=== PATIENT | male | born 1960 | race Caucasian/White ===

== ENCOUNTER 2019-11-28 14:11 | Inpatient (IN) | payer SELFPAY ==
[2019-11-28 14:14] VITALS: BP 139/85; PULSE 60; RESP 16; TEMP 36.7; O2SAT 99; BMI 25.0
--- NOTE | 2019-11-28 14:29 | PC.NURSE ---
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 Pt grabbed his head & put it down. Coworkers state that's when pt hears the voices. Pt said someone inside his head.
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
[2019-11-28 15:34] LABS: Basophils % 0.4 %; Eosinophils # 0.1 10^3/uL (0.0-0.8); Eosinophils % 0.8 %; Hematocrit 42.8 % (42.0-52.0); Hemoglobin 13.8 g/dL (11.7-16.6); Lymphocytes # 2.1 10^3/uL (0.8-4.8); Lymphocytes % 21.9 %; Mean Corpuscular HGB Conc 32.2 g/dL (30.0-36.0); Mean Corpuscular Hemoglobin 29.4 pg (28.0-34.0); Mean Corpuscular Volume 91.1 fL (80-94); Mean Platelet Volume 9.8 fL (7.4-10.4); Monocytes # 0.6 10^3/uL (0.2-0.9); Monocytes % 6.2 %; Neutrophils # 6.7 10^3/uL (1.8-7.7); Neutrophils % 70.4 %; Nucleated Red Blood Cells % 0 %; Platelet Count 246 10^3/cmm (130-400); Red Cell Distribution Width 12.4 % (12.1-15.1); White Blood Count 9.5 10^3/uL (4.0-10.0)
--- NOTE | 2019-11-28 15:53 | PC.NURSE ---
please see 1:1 documentation for further charting
--- NOTE | 2019-11-28 15:54 | PC.NURSE ---
provided food for pt
[2019-11-28 15:56] LABS: Alanine Aminotransferase 17 U/L (0-41); Albumin Level 4.1 g/dL (3.5-5.2); Alkaline Phosphatase 84 IU/L (40-130); Aspartate Amino Transferase 18 U/L (0-40); Blood Urea Nitrogen 10 mg/dL (6-20); Calcium 9.3 mg/Dl (8.6-10.0); Carbon Dioxide 24 mmol/L (22-29); Chloride 105 mmol/L (98-107); Globulin 2.5 g/dL (1.3-4.6); Glomerular Filtration Rate 115.8 mL/min (90-130); Glucose 99 mg/dL (74-109); Sodium 139 mmol/L (136-145); Total Bilirubin 0.3 mg/dL (0.15-1.2); Total Protein 6.6 g/dL (6.6-8.7)
[2019-11-28 16:15] LABS: Acetaminophen < 5.0 ug/mL (10-30); Alcohol Level < 10 mg/dL (0-10); Salicylate < 0.3 mg/dL (3-10)
[2019-11-28 17:03] LABS: Amphetamines Screen Urine Negative (Negative); Barbiturates Screen Urine Negative (Negative); Benzodiazepines Screen Urine Negative (Negative); Cocaine Screen Urine Negative (Negative); Opiate Screen Urine Negative (Negative); PCP Screen Urine Negative (Negative); THC Screen Urine Positive (Negative)
[2019-11-28 18:06] VITALS: BP 126/65; PULSE 61; RESP 18; O2SAT 97
[2019-11-28 18:25] VITALS: BP 155/93; PULSE 63; RESP 20; TEMP 37.1; O2SAT 98
[2019-11-28 20:38] VITALS: BP 135/79; PULSE 62; RESP 18; TEMP 36.9; O2SAT 98
[2019-11-29 06:00] VITALS: BP 140/73; PULSE 80; RESP 20; TEMP 36.8; O2SAT 98
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
[2019-11-29 14:00] VITALS: BP 121/71; PULSE 65; RESP 16; TEMP 36.4; O2SAT 96
[2019-11-29] MEDS: fluoxetine 20 mg Capsule PO (18:21)
[2019-11-29 19:55] VITALS: BP 133/72; PULSE 56; RESP 19; TEMP 36.8; O2SAT 98
[2019-11-30 06:00] VITALS: BP 126/72; PULSE 59; RESP 19; TEMP 36.5; O2SAT 98
[2019-11-30] MEDS: fluoxetine 20 mg Capsule PO (08:50)
--- NOTE | 2019-11-30 12:57 | P.PN_ITS ---
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 He gets home late at night and can't get to sleep. He is only getting 3-4 hours of sleep per night. Mental Status Exam MSE Comments: Mental Status Exam: Patient is believed to be a reliable source of information Appearance: hygiene is Poor; no gross neurological deficits., gait is unremarkable; AIMS=0 Speech: Speech is of normal rate and rhythm and easily understood. Thought processes: Thought processes are abstract. Judgment is adequate for safety. Associations: intact Psychotic processes: There is no indication of guarding or paranoia. There is no attention to the internal stimuli. Auditory and visual hallucinations are denied. Judgment: Insight is fair. Problem solving skills are adequate for safety. Orientation: The patient is oriented to person, place time and situation. Memory: no deficits noted in immediate, intermediate, or remote spheres. Attention: The patient is alert and interpersonally engaged. Language: Verbalizations are coherent. Fund of knowledge: Fund of knowledge is adequate. Affect/Mood: Affect is consistent with a depressed mood. Denied suicidal ideation Affective range is appropriate. Psychosis: perception unimpaired except through cognitive distortion; reality testing intact. Cognition: Patient Appearance: Disheveled/Poor Hygiene Level of Consciousness: Awake, Alert and Appropriate Patient Cognition Impaired: No Ability to Follow Directions: Good Patient Orientation (long list): Person, Place and Time Comprehension Ability: Understands Concepts Hallucination Type: None Delusion Description: Not Present Thought Process: Confused Affect: Affect Description: [place] Depressive Symptoms: Unhappiness Behavior: Patient Behavior: Appropriate Speech Pattern: Appropriate Vitals/I&O/Wt Last Vital Signs Temp 97.7 F 11/30/19 06:00 Pulse 59 L 11/30/19 06:00 Resp 19 H 11/30/19 06:00 BP 126/72 11/30/19 06:00 Pulse Ox 98 11/30/19 06:00 Weight last 48 hrs Weight 83.915 kg A&P Additional A&P Information Major depression?single episode, severe, without psychotic features Grief response?acute Plan: Trial of Ambien 5 mg at bedtime Continue Prozac 20 mg daily Continue social work consultation. Discussed with patient exploration of availability of leave from his employment temporarily. Involuntary Hold Information 96 Hour Hold: 96 Hour Involuntary Admission: No Attestations NPU Medical Necessity Statement*: Patient will remain in the hospital another 3-4 nights while his medications are stabilized and psychosocial issues are dealt with. Coding Level of Care Code Acute Senior Data Analyst for [place]
[2019-11-30 14:00] VITALS: BP 120/77; PULSE 58; RESP 18; TEMP 36.7; O2SAT 99
[2019-11-30 19:59] VITALS: BP 104/69; PULSE 65; RESP 17; TEMP 36.7; O2SAT 98
[2019-11-30] MEDS: zolpidem 5 mg Tablet PO (21:43)
[2019-12-01 06:00] VITALS: BP 118/69; PULSE 58; RESP 18; TEMP 36.6; O2SAT 98
[2019-12-01] MEDS: fluoxetine 20 mg Capsule PO (09:10)
--- NOTE | 2019-12-01 13:32 | P.PN_ITS ---
Subjective NPU Subjective: Interval history: PAtient tolerating fluoxetine. Ambien ineffective for improving diurnal pattern. Coping skills discussed. He does have small group of strong social support. Genreally not very social person.. Mental Status Exam MSE Comments: This is a well-nourished well-developed white male with adequate dress, grooming and eye contact. No abnormal movements except for psychomotor retardation. Cooperative with exam in mild distress. Speech was normal rate and volume. Mood described as depressed affect congruentbut less so with better affective range and appreciation of humor. Thought process organized. Thought content: Patient denied any homicidal ideation but does endorse suicidal thoughts, there are no delusions reported or noted, he denies any auditory or visual hallucinations. Attention and concentration were intact and memory appeared reliable but none were formally tested. He is alert and oriented x3. Insight and judgment are impaired. Cognition: Patient Appearance: Disheveled/Poor Hygiene Level of Consciousness: Awake, Alert and Appropriate Patient Cognition Impaired: No Ability to Follow Directions: Good Patient Orientation (long list): Person, Place and Time Comprehension Ability: Understands Concepts Hallucination Type: None Delusion Description: Not Present Thought Process: Confused Affect: Affect Description: Calm and Flat Depressive Symptoms: Unhappiness Behavior: Patient Behavior: Cooperative Speech Pattern: Clear Vitals/I&O/Wt Last Vital Signs Temp 97.9 F 12/01/19 06:00 Pulse 58 L 12/01/19 06:00 Resp 18 12/01/19 06:00 BP 118/69 12/01/19 06:00 Pulse Ox 98 12/01/19 06:00 Data NPU : 11/28/19 15:29 11/28/19 15:29 A&P Additional A&P Information This is a 58-year-old white male with a long history of trauma and loss who p resents after the of his 2 months ago with continued symptoms of depression, despair and thoughts of not wanting to go on. 1. Continue current medication. Except: 2. Day #3 on Prozac 20 mg p.o. every morning. Replace ambien with gabapentin 300 mg for insomnia 3. Encouraged individual, group and milieu therapy. 4. Continue to 15-minute checks for safety. 5. Explore the resources in the community for grief counseling after discharge. Involuntary Hold Information 96 Hour Hold: 96 Hour Involuntary Admission: No Attestations NPU Medical Necessity Statement*: patient will remain in hospital 3 more midnights for safety of medication assessment. Coding Level of Care Code Acute Health Services Rn for [place]
[2019-12-01 13:36] VITALS: BP 112/66; PULSE 61; RESP 20; TEMP 36.9
[2019-12-01 20:03] VITALS: BP 118/82; PULSE 74; RESP 22; TEMP 36.8
[2019-12-01] MEDS: gabapentin 300 mg Capsule PO (20:32)
[2019-12-01 22:00] VITALS: BP 118/82; PULSE 74; RESP 22; TEMP 36.8; O2SAT 97
[2019-12-02 05:22] VITALS: BP 128/84; PULSE 80; RESP 19; TEMP 36.9; O2SAT 98
[2019-12-02] MEDS: fluoxetine 20 mg Capsule PO (08:16)
--- NOTE | 2019-12-02 12:25 | P.PN_ITS ---
Subjective NPU Subjective: Interval history: PAtient tolerating fluoxetine. Gabapentin effective for sleep but it took several hours to work. He would like to t be discharged today but was unable to arrange transportation. Mental Status Exam 2 MSE Comments: This is a well-nourished well-developed white male with adequate dress, grooming and eye contact. No abnormal movements except for psychomotor r etardation. Cooperative with exam in mild distress. Speech was normal rate and volume. Mood described as depressed affect congruentbut less so with better affective range and appreciation of humor. Thought process organized. Thought content: Patient denied any homicidal ideation and suicidal thoughts, there are no delusions reported or noted, he denies any auditory or visual hallucinations. Attention and concentration were intact and memory appeared reliable but none were formally tested. He is alert and oriented x3. Insight and judgment are impaired. Cognition: Patient Appearance: Disheveled/Poor Hygiene Level of Consciousness: Awake, Alert and Appropriate Patient Cognition Impaired: No Ability to Follow Directions: Good Patient Orientation (long list): Person, Place and Time Comprehension Ability: Understands Concepts Hallucination Type: None Delusion Description: Not Present Thought Process: Appropriate Affect: Affect Description: Appropriate Depressive Symptoms: Unhappiness Behavior: Patient Behavior: Appropriate Speech Pattern: Clear Vitals/I&O/Wt Last Vital Signs Temp 98.4 F 12/02/19 05:22 Pulse 80 12/02/19 05:22 Resp 19 H 12/02/19 05:22 BP 128/84 12/02/19 05:22 Pulse Ox 98 12/02/19 05:22 Data NPU : 11/28/19 15:29 11/28/19 15:29 A&P Additional A&P Information This is a 58-year-old white male with a long history of trauma and loss who presents after the of his 2 months ago with continued symptoms of depression, despair and thoughts of not wanting to go on. 1. Continue current medication. Except: 2. Day #3 on Prozac 20 mg p.o. every morning. Replace ambien with gabapentin 300 mg for insomnia Hospital day #4: will independent crop consultant gabapentin up to suppertime. Discharge is planned for tomorrow if he remains free of suicidal and homicidal ideation 3. Encouraged individual, group and milieu therapy. 4. Continue to 15-minute checks for safety. 5. Explore the resources in the community for grief counseling after discharge. Involuntary Hold Information 96 Hour Hold: 96 Hour Involuntary Admission: No Attestations NPU Medical Necessity Statement*: Pt to remain in hospital one more night and then discharge if he sleeps well. Coding Level of Care Code Acute Abstractor for [place]
[2019-12-02 14:00] VITALS: BP 117/83; PULSE 81; RESP 18; TEMP 36.8; O2SAT 96
[2019-12-02 20:35] VITALS: BP 127/85; PULSE 81; RESP 22; TEMP 36.8; O2SAT 98
[2019-12-02] MEDS: trazodone 50 mg Tablet PO (21:17)
[2019-12-03 06:00] VITALS: BP 98/60; PULSE 63; RESP 18; TEMP 36.6; O2SAT 98
[2019-12-03] MEDS: fluoxetine 20 mg Capsule PO (08:42)
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
[2019-12-03 11:37] VITALS: BP 98/60; PULSE 63; RESP 18; TEMP 36.6; O2SAT 98
[2019-12-03 15:56] VITALS: BP 98/60; PULSE 63; RESP 18; TEMP 36.6; O2SAT 98
[2019-12-03 15:57] VITALS: BP 98/60; PULSE 63; RESP 18; TEMP 36.6; O2SAT 98
== END 2019-12-03 15:15 | disposition home or self-care (01) | DRG 881 ==
LOC: ER 16:37 → NP 11-29 09:48
PROVIDERS: Physician Assistant; Admitting Provider Psychiatry & Neurology Psychiatry; Emergency Provider Emergency Medicine; Family Provider Nurse Practitioner Family; PCP Nurse Practitioner Family; Visit Provider Psychiatry & Neurology Psychiatry
DX: F32.9 Major depressive disorder, single episode, unspecified (principal)
CPT/HCPCS: 12345; 36415; 80053; 80307; 85025; 99284; G0378

== ENCOUNTER 2020-05-21 08:11 | Day surgery (SDC) | payer SELFPAY ==
[2020-05-21] VITALS (8 sets, daily range): BP systolic 111–158; BP diastolic 77–99; PULSE 54–74; RESP 18–23; TEMP 36.1–36.4; O2SAT 93–100; BMI 24.4
[2020-05-21] MEDS: sodium chloride 0.9% 1,000 ML 30 ML IV (08:52)
--- NOTE | 2020-05-21 09:22 | P.ANESASSM_ITS ---
Pre-Anesthetic Assessment Pre-Anesthetic Assessment: Height/Weight: Height 1.85 m Weight 83.915 kg Temp Pulse Resp BP Pulse Ox 97.2 F L 74 18 129/85 99 05/21/20 08:33 05/21/20 08:33 05/21/20 08:33 05/21/20 08:33 05/21/20 08:33 Preop Diagnosis: Right inguinal hernia Proposed Procedure: Operation Date: 05/21/20 09:40 Proposed Procedures p Inguinal Hernia Repair w/ Mesh 20246 K40.90(Right) - Luis E Vigil MD Familial anesthetic complications: None Was Beta Shaista taken within 24 hours: N/A Last intake: Intake Last Liquid Date 05/20/20 Last Liquid Time 21:00 Last Solid Date 05/20/20 Last Solid Time 21:00 Social: Social History: Tobacco and No alcohol Exam: Pre-Anes Outpt Exam: alert, oriented x 3, clear to auscultation bilaterally and regular rate & rhythm Airway: Cervical ROM: WNL MP: 1 Dentition: Other (edentulous) Pulmonary: Pulmonary: None reported CV/HEM: CV/HEM: None reported : : None reported Hepatic: Hepatic: None reported GI: GI: None reported Metabolic: Metabolic: None reported Musc/skel: Musc/skel: None reported Neuropsych: Neuropsych: None reported Anesthetic Plan: ASA status: 1 Anesthesia: General Risk of > 500 ml blood loss (7ml/kg in children): No Meds/Allergies Current Medications: Current Medications Generic Name Dose Route Start Last Admin Trade Name Freq PRN Reason Stop Dose Admin Sodium Chloride 1,000 mls @ 30 ml s/hr 05/21/20 08:00 05/21/20 08:52 Sodium Chloride 0.9% IV 05/22/20 07:59 30 mls/hr .Q24H KAMRAN Administration PFSH Anesthesia PFSH: Family History Denies family history of Anesthesia complication Bleeding disorder Social History Smoking and tobacco status: current every day smoker cigarettes Packs smoked per day: 0.75 Years cigarettes smoked: 45 Second hand smoke exposure: No Alcohol intake: never Lives independently: Yes Household members: children Marital status: / Current occupational status: employed 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
--- NOTE | 2020-05-21 09:28 | W.PM.OPSUD ---
Surgery/Procedure H&P Update DATE OF PROCEDURE: May 21, 2020 DATE H&P PERFORMED: 05/16/20 H&P UPDATE INFORMATION: I have reviewed H&P completed within last 30 days, I have examined patient prior to procedure and No changes to prior documentation PREOP DIAGNOSIS: Right inguinal hernia PRIMARY INDICATION FOR PROCEDURE: The same PLANNED PROCEDURE: Operation Date: 05/21/20 09:40 Proposed Procedures p Inguinal Hernia Repair w/ Mesh 73401 K40.90(Right) - Luis E Vigil MD
[2020-05-21] MEDS: lidocaine 2% INJ 20 mL INJECTION (10:20)
--- NOTE | 2020-05-21 11:12 | PM.OP ---
Operative Report Date of procedure: May 21, 2020 Pre-op Diagnosis: Right inguinal hernia Post-op diagnosis: same (Right large indirect inguinal hernia) Procedure Done: Right open inguinal hernia repair with mesh placement polypropylene X large tension-free repair Excision of large lipoma of the cord Specimens removed/disposition: 1. Hernial sac and content #2 lipoma of the cord Surgeon: Luis E Vigil Substation Wireman: crown and bridge dental lab technician Leroy Circulating nurses Donnie Anesthesia: General (Fran Mendez) Estimated blood loss (mL): 10 Condition: stable Disposition: same day Brief History: This is a pleasant 59-year-old gentleman presented to my office with symptomatic right inguinal hernia, after thorough history physical examination reviewing the chart I did recommend for the patient for open inguinal hernia repair with mesh placement and patient agreed to proceed. An informed consent per chart Procedure: Right open inguinal hernia repair and excision of lipoma of the cord Patient was identified in the holding area and right groin was marked by myself patient was taken to the operating room where he was placed in supine position,antibiotic was given with induction, endotracheal tube was placed per anesthesia, Lopez catheter was inserted by the circulating nurse revealing clear urine, prep and drape of both groins and lower abdomen and scrotum including the genitalia was done under the usual sterile technique. Time-out was done verifying the patient's name/date of /planned procedure destination after the procedure, all were in agreement. SCDs confirmed to be functioning, preoperative antibiotics administered per protocol, and beta sam protocol was confirmed. I started with a right groin incision 1-1/2 finger above the inguinal ligament towards the pubic tubercle, used 15 blade knife skin incision , continued to dissect using Bovie to subcutaneous, Mili's fascia down to the external oblique aponeurosis, large right indirect inguinal hernia extending to the scrotum was identified, external oblique aponeurosis was then incised using a 10 blade knife, after application of 2 hemostats across sides of the fascia and opened it, right ileo-inguinal nerve was safeguard, I managed to dissect and deliver the enlarged spermatic cord out of the wound, and placed a [place] drain for traction and countertraction, I dissected the spermatic cord and the vas deferens is identified and safeguarded ,as I identified a right inguinal hernia sac , the hernia sac was totally dissected until I reached the patulous deep inguinal ring, I opened the hernia sac the contents were viable. I did apply a transfixing sutures with 2-0 silk pop off x 2 under vision where I tied down and the sac went inside the abdominal cavity and I cut the extra sac and sent it for pathology. Large lipoma of the cord was dissected and sent separately for permanent pathology Attention was now deviated to mesh placement , using polypropylene mesh system was applied tension-free(X-large size), a cone was applied at the deep inguinal ring stabilized by silk sutures 2/0, then a sheet of mesh was applied onto the floor of the posterior wall of the right inguinal canal and anchored medially to the pubic tubercle then inferiorly to the underlying surface of the inguinal ligament and superiorly to the internal oblique aponeurosis using Prolene sutures 2/0, both limbs of the mesh encircled the exit of the cord at the deep inguinal ring, and stitched down. The cord maintained to be in good position thorough irrigation of the wound was done with normal saline and closure of the external oblique aponeurosis was done by 2/O Vicryl, followed by approximation of Mili's fascia by 2-0 Vicryl then skin maddie to close the skin, dressing was then applied in the form of Dermabond. Counts of instruments,sponges and needles were completed at the end of the procedure. Scrotal support was then placed Patient tolerated the procedure well and was taken to the recovery area after extubation I was present for the whole entire procedure
[2020-05-21] MEDS: HYDROcodone-acetaminophen 5-325 mg Tablet 1 TAB PO (11:59)
== END 2020-05-21 12:27 | disposition home or self-care (01) ==
PROVIDERS: Visit Provider Surgery
PROC: (CPT 49505; principal; 2020-05-21 09:40)
DX: K40.90 Unilateral inguinal hernia, without obstruction or gangrene, not specified as recurrent (principal); D17.6 Benign lipomatous neoplasm of spermatic cord; F17.210 Nicotine dependence, cigarettes, uncomplicated
CPT/HCPCS: 49505; 12345; 88302; 88304; 96365; J0131; J0690; J2001; J2704; J2710; J3010; J3490; J7030

== ENCOUNTER 2021-02-14 11:31 | Outpatient (CLI) | payer MEDICAID, SELFPAY ==
--- NOTE | 2021-02-14 11:40 | XRR_ITS ---
PROCEDURE INFORMATION: Exam: XR Lumbosacral Spine Exam date and time: 02/14/2021 11:43 AM Age: 60 years old Clinical indication: Lumbago with sciatica; Patient HX: Injury 15 years ago, pain in lower back, right leg numb knee down; Additional info: M54.41 - lumbago with sciatica, right side TECHNIQUE: Imaging protocol: XR of the lumbosacral spine. Views: 6 or more views. Including flexion and extension views. COMPARISON: [place] [id number] 03/10/2018 3:34 PM FINDINGS: Bones/joints: Normal. No acute fracture. Normal alignment. The examination is negative for instability with flexion and extension maneuvers. Soft tissues: Unremarkable. XR/XR lumbar spine 6V w f/e [id number] IMPRESSION: No acute findings.
== END 2021-02-14 11:32 | disposition home or self-care (01) ==
LOC: RAD 11:38
PROVIDERS: PCP Family Medicine; Visit Provider Family Medicine
DX: M54.41 Lumbago with sciatica, right side (principal); G89.29 Other chronic pain; R20.0 Anesthesia of skin
CPT/HCPCS: 72114

== ENCOUNTER 2023-06-16 12:01 | Outpatient (CLI) | payer MEDICARE, MEDICAID, SELFPAY ==
--- NOTE | 2023-06-16 11:15 | CT_ITS ---
WS: [id number] LDCT LUNG CANCER SCREENING HISTORY: F17.210 - Nicotine dependence, cigarettes, uncomplicated TECHNIQUE: Axial imaging performed from the apices to 1 cm below the costophrenic angles. Coronal and sagittal reformats are submitted with axial MIP series. All CT scans at [facility] use at least one of these dose optimization techniques: automated exposure control; mA and/or kV adjustment per patient size (includes targeted exams where dose is matched to clinical indication); or iterativ e reconstruction. DLP: 101.71 mGy.cm DIvol: Mean CTDIvol: 2.10 (mGy) COMPARISON: None available. Diagnostic quality: Satisfactory Lungs: No pulmonary mass or nodule. Benign granuloma LEFT upper lobe. Dependent changes at the lung b ases. No endobronchial lesions. Heart: Normal size heart with no pericardial effusion.. Other findings: None. CT/CT lung screening [id number] IMPRESSION: LUNG-RADS: 1-Negative FOLLOW UP: 12 Month: Continue annual screening with LDCT OTHER FINDINGS (S MODIFIER): None.
== END 2023-06-16 12:02 | disposition home or self-care (01) ==
LOC: RAD 12:02
PROVIDERS: PCP Family Medicine; Visit Provider Family Medicine
DX: F17.210 Nicotine dependence, cigarettes, uncomplicated (principal); Z12.2 Encounter for screening for malignant neoplasm of respiratory organs
CPT/HCPCS: 71271

== ENCOUNTER → 2023-12-23 10:44 | Outpatient (BNVA) | payer MEDICARE, MEDICAID, SELFPAY | PROVIDERS: PCP Family Medicine; Visit Provider Nurse Practitioner Family | DX: R06.02 Shortness of breath (principal) | CPT/HCPCS: 71046 ==